=== PATIENT | male | born 1990 | race Caucasian/White ===

== ENCOUNTER 2021-04-06 08:54 | Emergency (ER) | payer OTHER ==
[~2021-04-06] VITALS: Ht 185.4 cm; Wt 97.5 kg
--- NOTE | 2021-04-06 09:14 | NUR ---
Patient alert oriented x4. Patient c/o "chest pain sharp/worse when i take a breath started yesterday goes to back ebbs/flows but constant". Respirations even and unlabored. Patient placed on monitor and awaiting MD navarrete. Will continue to monitor.
--- NOTE | 2021-04-06 09:17 | NUR ---
Radiology at bed side for chest xray
[2021-04-06 09:39] LABS: CALCIUM, SERUM 8.5 mg/dL (8.5-10.1); POTASSIUM 3.9 mmol/L (3.5-5.1)
[2021-04-06 09:40] LABS: BASOPHILS % (AUTO) 0.2 % (0.0-2.0); EOSINOPHILS % (AUTO) 0.2 % (0.0-6.0); HEMATOCRIT 42 % (39-51); HEMOGLOBIN 14.3 g/dL (13.5-17.5); LYMPHOCYTES # (AUTO) 1.6 K/uL (0.8-4.8); MEAN CORPUSCULAR HGB CONC 34 g/dl (31.0-36.0); MEAN CORPUSCULAR VOLUME 86 fL (80-96); MONOCYTES % (AUTO) 7.7 % (2.0-12.0); NEUTROPHILS # (AUTO) 9.8 K/uL (1.8-8.9); NEUTROPHILS % (AUTO) 78.9 % (43.0-81.0); PLATELET COUNT (AUTO) 240 K/uL (150-450); RED BLOOD CELL COUNT(AUTO) 4.89 MIL/uL (4.5-6.0); WHITE BLOOD COUNT (AUTO) 12.4 K/uL (4.3-11.0)
[2021-04-06] MEDS ORDERED: IV NS 0.9% 250 ML IV ONE (10:18)
[2021-04-06] MEDS ORDERED: IOHEXOL-350 100 ML VIAL IV ONE (10:18)
[2021-04-06] MEDS ORDERED: CT SWABBABLE VALVE TRANS SET 1 EA INFUS.SET MC ONE (10:18)
--- NOTE | 2021-04-06 10:24 | NUR ---
Patient out to radiology for CT pulmonary/angio.
--- NOTE | 2021-04-06 10:24 | NUR ---
move sheet submitted and called for tele bed.
[2021-04-06] MEDS ORDERED: IV NS 0.9% 1,000 ML BAG IV ONE (10:30)
[2021-04-06] MEDS ORDERED: ASPIRIN 325 MG TABLET PO ONE (10:30)
[2021-04-06] MEDS ORDERED: ASPIRIN 325 MG TABLET ONE (10:36)
--- NOTE | 2021-04-06 10:52 | NUR ---
Covid swab done and sent to LAB.
[2021-04-06] MEDS ORDERED: HYDROCODONE/APAP 5/325MG TABLET PO PRN (11:00)
[2021-04-06] MEDS ORDERED: MAG HYDROX/AL HYDROX/SIMETH 30 ML UDC PO PRN (11:00)
[2021-04-06] MEDS ORDERED: ONDANSETRON HCL/PF 4 MG/2 ML VIAL IVP PRN (11:00)
[2021-04-06] MEDS ORDERED: MAGNESIUM HYDROXIDE 30 ML UDC PO PRN (11:00)
[2021-04-06] MEDS ORDERED: ACETAMINOPHEN 325 MG TABLET PO PRN (11:00)
[2021-04-06] MEDS ORDERED: ZOLPIDEM TARTRATE 5 MG TABLET PO PRN (11:00)
[2021-04-06] MEDS ORDERED: MORPHINE SULFATE INJ 2 MG/ML DISP.SYRIN IV PRN (11:00)
[2021-04-06] MEDS ORDERED: Z GUARD REMEDY 2 OZ OINT TP PRN (11:00)
[2021-04-06] MEDS ORDERED: LISD40CA PO (11:11)
[2021-04-06] MEDS ORDERED: TRUVADA (11:11)
--- NOTE | 2021-04-06 11:54 | NUR ---
GOT BED ASSIGNMENT 320-2 MIGUEL ANGEL SMITH
[2021-04-06] MEDS ORDERED: INDOMETHACIN 25 MG CAPSULE PO SCH (13:00)
[2021-04-06] MEDS ORDERED: LORAZEPAM 1 MG TABLET ONE (13:57)
[2021-04-06] MEDS ORDERED: LORAZEPAM 1 MG TABLET PO PRN (14:00)
[2021-04-06] MEDS ORDERED: ENOXAPARIN SODIUM 40 MG/0.4 ML DISP.SYRIN SQ SCH (14:03)
--- NOTE | 2021-04-06 14:18 | NUR ---
CM NOTE PER HOSPITALIST AND FOOD SERVICE ATTENDANT, PT NEEDS HLOC TX FOR MYOCARDIAL TISSUE BIOPSY. PER FOOD SERVICE ATTENDANT, ONLY [facility] AND [facility] DO THIS PROCEDURE. CM FAXED ALL AVAILABLE CLINICALS TO - [facility] PHONE # , FAX # , FAX CONFIRMATION RECEIVED, PER GLEN AT [facility] CASE IS PENDING REVIEW - [facility] FAX # , FAX CONFIRMATION RECEIVED CM TO F/U.
[2021-04-06] MEDS ORDERED: ENOXAPARIN SODIUM 40 MG/0.4 ML DISP.SYRIN SQ ONE (14:38)
--- NOTE | 2021-04-06 15:38 | NUR ---
Patient in bed, eating with no signs of distress noted at this time. patient is alert and oriented. will continue to monitor.
--- NOTE | 2021-04-06 16:25 | NUR ---
FOLLOWED UP WITH TRANSFORM[employer] MECHANICMANAGER [facility] REGARDING TRANSFER AND PER TRANSFORMER MECHANIC NO UPDATES YET.
--- NOTE | 2021-04-06 16:46 | NUR ---
Patient in bed, awake and verbally responsive. O distress noted at this time. Will continue to monitor.
[2021-04-06] MEDS ORDERED: HYDROCODONE/APAP 5/325MG TABLET ONE (16:55)
--- NOTE | 2021-04-06 17:54 | NUR ---
PT ACCEPTED TO [facility] ROOM [address] MCKAY CALL [phone] FOR REPORT. [facility] FROM [facility]SFER [facility]ENTER.
--- NOTE | 2021-04-06 18:00 | NUR ---
TRANSPORT [facility] CALLED ALEXIS ROMANO IS 90 MINS.
--- NOTE | 2021-04-06 18:29 | NUR ---
04/06/2021 CM received call from Oseas at [facility] Transfer [facility] and stated patient had been accepted by [facility]. Emery and will be going to Tele 3S24 . ER set up transportation with [facility] eta of 90 min.
--- NOTE | 2021-04-06 18:40 | NUR ---
Patient in [facility] awake alert oriented x4. denies any discomfort at this time. will continue to monitor
[2021-04-06 18:41] VITALS: BP 140/66
--- NOTE | 2021-04-06 20:12 | NUR ---
report given to the [facility] ambulance team
[2021-04-07] MEDS ORDERED: PANTOPRAZOLE 40 MG TABLET.DR PO SCH (07:30)
[2021-04-07] MEDS ORDERED: ASPIRIN 81 MG TAB.CHEW PO SCH (09:00)
== END 2021-04-06 20:14 | disposition short-term general hospital (02) ==
LOC: ER 08:55 → UNDOADMIN 13:37 → TELE 13:37
DX: I21.4 Non-ST elevation (NSTEMI) myocardial infarction (principal); F90.9 Attention-deficit hyperactivity disorder, unspecified type; E66.9 Obesity, unspecified; Z68.28 Body mass index [BMI] 28.0-28.9, adult; Z20.822 Contact with and (suspected) exposure to COVID-19
CPT/HCPCS: 36415; 71045; 71275; 80048; 84484 ×3; 85025; 85652; 87081; 87426; 93005; 93307; 96360; 96372; 99291; C9803; J1650; J7050; Q9967; G0378